=== PATIENT | female | born 1965 | race African-American/Black ===

== ENCOUNTER 2019-04-05 20:26 | Emergency (ER) | payer MEDICAID, OTHER ==
[~2019-04-05] VITALS: Ht 167.6 cm; Wt 73.0 kg
[2019-04-05 20:30] VITALS: BP 127/86
== END 2019-04-06 00:25 | disposition left against medical advice (07) ==
LOC: ER 20:26
DX: Z53.21 Procedure and treatment not carried out due to patient leaving prior to being seen by health care provider (principal)